=== PATIENT | female | born 1985 | race Caucasian/White ===

== ENCOUNTER → 2016-09-07 | Outpatient (REF) ==
[~2016-09-07] MED LIST: FLONASE NASAL S16 GM NS; NUVARING1 ICR VG
== END ==
LOC: WSOH 11:45
DX: Z02.89 Encounter for other administrative examinations (principal)

== ENCOUNTER → 2016-11-03 | Outpatient (REF) | LOC: WSOH 17:00 | DX: Z02.89 Encounter for other administrative examinations (principal) ==

== ENCOUNTER 2018-08-28 00:20 | Inpatient (IN) | payer BC ==
[2018-08-28] VITALS (43 sets, daily range): BP systolic 99–133; BP diastolic 56–84; PULSE 77–102; TEMP 98.3–98.9
[~2018-08-28] VITALS: Ht 165.1 cm; Wt 98.2 kg
--- NOTE | 2018-08-28 00:25 | NUR ---
PT ARRIVED TO UNIT AMBULATORY WITH SPOUSE WITH COMPLAINTS OF CONTRACTIONS THROUGHOUT THE DAY THAT STARTED GETTING MORE INTENSE AROUND 1999. PT ORIENTED TO ROOM, CHANGED INTO GOWN. EFM X2 APPLIED, VS OBTAINED, SVE PERFORMED.
[2018-08-28] MEDS ORDERED: PRILOSEC 20MG20 MG PO (01:09)
[2018-08-28] MEDS ORDERED: PRENATAL PO (01:10)
[2018-08-28] MEDS ORDERED: ZOLOFT 50MG50 MG PO (01:11)
[2018-08-28] MEDS ORDERED: CALCIUM CARBON650 M2 PO (01:12)
--- NOTE | 2018-08-28 04:02 | NUR ---
0345- Claudia HORTA CRNA IN ROOM FOR EPIDURAL PLACEMENT, PT SITTING UP AT BEDSIDE, BP AND PULSE OX ON WITH MONITORS SET. 0356- TEST DOSE GIVEN BY Claudia HORTA CRNA, PT TOLERATED WELL. 0402- PT REPOSITIONED FOLLOWING EPIDURAL TO SEMIFOWLERS.
[2018-08-28 05:30] LABS: BASO # 0.1 (0.0-0.2); BASO % 0.3 % (0.0-2.0); EOS % 0.2 % (0-4.0); GRAN # 13.2 (1.4-6.5); GRAN % 81.1 % (42.2-75.2); HEMATOCRIT 38.8 % (37.0-47.0); HEMOGLOBIN 12.7 g/dl (12.5-16.0); LYMPH # 1.9 (1.2-3.4); LYMPH % 11.9 % (20.0-51.0); MEAN CELL VOLUME 94 fl (80.0-100.0); MEAN CORPUSCULAR HEMOGLOBIN 31 pg (27.0-31.0); MEAN CORPUSCULAR HGB CONC 33 g/dl (33.0-37.0); MEAN PLATELET VOLUME 11.7 fl (7.4-10.4); MONO # 0.9 (0.1-0.6); MONO % 5.5 % (1.7-9.3); PLATELET COUNT 206 K/mm3 (130-400); RED BLOOD COUNT 4.15 M/mm3 (4.10-5.30); REDCELL DISTRIBUTION WIDTH-CV 12.8 % (11.5-14.5)
--- NOTE | 2018-08-28 06:35 | NUR ---
Difficulty tracing FHR at this time, RN at bedside adjusting FHR monitor. 0645: SVE-7-8/90/-2 0900: FHR baseline 145bpm and subtle late decelerations noted. Patient repositioned. 1002: FHR baseline 130bpm, patient wedged right and left leg in stirrup and FHR decreasing to 120bpm for approx 2 minutes and increasing to 125-130bpm.
--- NOTE | 2018-08-28 08:20 | NUR ---
Dr Freeman at bedside and assessing patient/FHR strip. 0823: SVE per Dr. Freeman /-2 and AROM done at this time with clear fluid noted. Pericare done and new pads/towel under patient. Patient sat up with legs lowered and plan of care discussed.
--- NOTE | 2018-08-28 10:30 | NUR ---
Variable deceleration noted. SVE-/-1 and FHR 120bpm and increasing back to 135bpm. Patient sits up and legs lowered. 1130: Recurrent variable decelertions noted and return quickly to baseline. 1135: Dr. Freeman at bedside and SVE per physician /+1. Patient prepped for vaginal delivery. Crocker catheter removed at this time. Bed taken apart. Pericare done. 1140: Patient begins to push per Dr. Freeman and with contraction. FHR baseline 130bpm with variables. 1141: FHR decreasing to 90bpm. 1142: Spontaneous vaginal delivery of head followed by body. to patient abdomen and Basia RN assumes care of infant. Cord clamped by Dr. Freeman and cut by FOB. Cord blood obtained. 1147: Spontaneous vaginal delivery of placenta and pitocin started per protocol. Fundal massage done/bleeding WNL/firm. Dr Freeman repairs laceration of perineum. 1155: Patient repositioned and ice pack to perineum. Plan of care discussed. 1215: Cord gasses obtained from placenta per Dr. Freeman at this time.
--- NOTE | 2018-08-28 12:40 | NUR ---
Patient assisted to edge of bed, stands up, underwear and pad on and assisted x2 to wheelchair. Patient to nursery to see baby before baby is transferred to [facility].
--- NOTE | 2018-08-28 13:05 | NUR ---
Patient assisted to edge of bed, sits up and assisted to standing x2 and underwear/pad on and sits into wheelchair. Patient to Nursery to visit baby before baby is transferred to [facility].
[2018-08-29 03:55] VITALS: BP 112/58; PULSE 80; TEMP 97.5
[2018-08-29 09:00] VITALS: BP 107/60; PULSE 102; TEMP 97.8
--- NOTE | 2018-08-29 09:07 | NUR ---
Initial visit; Mom thanked Diffusion Furnace Operator for offering congratulations and God's blessings for the of their son. Diffusion Furnace Operator thanked family for choosing [facility].
== END 2018-08-29 09:00 | disposition home or self-care (01) | DRG 807 ==
LOC: LDRO 00:20 → LDR 02:59 → OB 13:15
PROVIDERS: Urology; ADMIT Student in an Organized Health Care Education/Training Program
PROC: 10E0XZZ Delivery of Products of Conception, External Approach (ICD-10-PCS; principal; 2018-08-28)
PROC: 0HQ9XZZ Repair Perineum Skin, External Approach (ICD-10-PCS; 2018-08-28)
DX: O60.23X0 Term delivery with preterm labor, third trimester, not applicable or unspecified (principal); Z37.0 Single live birth; O70.0 First degree perineal laceration during delivery; O99.62 Diseases of the digestive system complicating childbirth; K21.9 Gastro-esophageal reflux disease without esophagitis; O99.344 Other mental disorders complicating childbirth; F32.9 Major depressive disorder, single episode, unspecified; Z3A.36 36 weeks gestation of pregnancy
CPT/HCPCS: J2540; J2590; J7120

== ENCOUNTER 2023-04-19 05:34 | Day surgery (SDC) | payer BC ==
[2023-04-19] VITALS (7 sets, daily range): BP systolic 98–115; BP diastolic 57–70; PULSE 77–83; TEMP 97.6–98.3
[~2023-04-19] VITALS: Ht 165.1 cm; Wt 85.9 kg
[~2023-04-19 05:34] MED LIST changes: +CALCIUM CARBON650 M2 PO; +LR 1,000 ML IV SCH; +Meclizine 25 MG TAB PO SCH; +PRENATAL PO; +PRILOSEC 20MG20 MG PO; +ZOLOFT 50MG50 MG PO
[2023-04-19] MEDS ORDERED: PRIL40 PO (06:33)
[2023-04-19] MEDS ORDERED: Lidocaine PF 2% (20 MG/ML) 5 ML VIAL ONE (07:10)
[2023-04-19] MEDS ORDERED: fentaNYL 50 MCG/ML 2 ML VIAL ONE (07:10)
[2023-04-19] MEDS ORDERED: Rocuronium 50 MG/5 ML Multi-Dose VIAL ONE (07:10)
[2023-04-19] MEDS ORDERED: NS 10 ML IV ONE (07:11)
[2023-04-19] MEDS ORDERED: Ondansetron 4 MG/2 ML VIAL ONE (07:11)
[2023-04-19] MEDS ORDERED: dexAMETHasone 10 MG/ML VIAL ONE (07:13)
[2023-04-19] MEDS ORDERED: Ketorolac 30 MG/ML VIAL ONE (07:37)
[2023-04-19] MEDS ORDERED: Glycopyrrolate 0.2 MG/ML 1 ML VIAL ONE (07:37)
[2023-04-19] MEDS ORDERED: droPERidol 2.5 MG/ML 2 ML VIAL IV PRN (07:45)
[2023-04-19] MEDS ORDERED: HYDROmorphone 2 MG/1 ML VIAL IV PRN (07:45)
[2023-04-19] MEDS ORDERED: fentaNYL 50 MCG/ML 2 ML VIAL IV PRN (07:45)
[2023-04-19] MEDS ORDERED: hydrALAZINE 20 MG/ML 1 ML VIAL IV PRN (07:45)
[2023-04-19] MEDS ORDERED: Ondansetron 4 MG/2 ML VIAL IV PRN ×2 (07:45→08:30)
[2023-04-19] MEDS ORDERED: NORCO 325 MG-51 TAB PO (08:22)
[2023-04-19] MEDS ORDERED: Morphine 4 MG/ML VIAL IV PRN (08:30)
--- NOTE | 2023-04-19 10:40 | NUR ---
0920-PT TO [facility] [place] [facility] 8 PER CART FROM PACU. REPORT RECEIVED. VS OBTAINED. CALL LIGHT WITHIN REACH. PT DENIES ANY NEEDS AT THIS TIME. WANTS TO REST. 0950-PT TOLERATING ICE CHIPS AT THIS TIME. 1005-PT TOLERATING SODA AND MUFFIN. 1015-PT RATES PAIN 5/10. NORCO 5/325 GIVEN AT THIS TIME. 1020-IV DC'D AT THIS TIME. PT ABLE TO DRESS SELF WITHOUT ASSISTANCE. 1030-DISCHARGE EDUCATION COMPLETED WITH PT AND HER . VERBALIZED UNDERSTANDING OF HOME AND FOLLOW UP CARE. ALL QUESTIONS ANSWERED. DISCHARGE PAPERWORK GIVEN TO PT. 1040-PT OFF UNIT PER WHEELCHAIR. PT DISCHARGED TO HOME WITH PER PERSONAL VEHICLE.
== END 2023-04-19 10:40 | disposition home or self-care (01) ==
LOC: SDCO 05:34
DX: K35.30 Acute appendicitis with localized peritonitis, without perforation or gangrene (principal); N83.209 Unspecified ovarian cyst, unspecified side
CPT/HCPCS: J0690; J1100; J1170; J1790; J1885; J2405; J2704; J3010; J7120

== ENCOUNTER → 2023-05-04 | Outpatient (CLI) | payer BC ==
[~2023-05-04] MED LIST changes: -LR 1,000 ML IV SCH; -Meclizine 25 MG TAB PO SCH; +NORCO 325 MG-51 TAB PO; +PRIL40 PO
== END ==
LOC: COL.RAD 10:01
DX: R11.0 Nausea (principal)